=== PATIENT | female | born 2000 | race Two or more races ===

== ENCOUNTER 2025-01-15 10:25 | Inpatient (IN) | payer MEDICAID, SELFPAY ==
[2025-01-15] VITALS (20 sets, daily range): BP systolic 94–118; BP diastolic 50–64; PULSE 65–109; RESP 15–20; TEMP 36.6–36.9; O2SAT 99–100; BMI 27.6
--- NOTE | 2025-01-15 10:44 | XR_ITS ---
Examination: Complete OB ultrasound greater than 14 weeks Date and time of exam: January 15, 2025 1111 hours INDICATIONS: Patient in labor today with no care Findings: Viable intrauterine single fetus with single amniotic sac presentation cephalic spine posterior Cardiac motion 155 BPM Placenta anterior grade 3 Umbilical cord insertion 3 vessel seen seen Amniotic fluid index 7.1 cm Ovaries obscured by bowel gas. Composite estimated gestational age based on BPD, head circumference, abdominal circumference, femur length is 34 weeks 4 days Estimated weight 2444 g. Survey of intracranial anatomy, spinal anatomy, abdominal anatomy, four-chamber heart performed with no abnormalities identified. Impression: Viable intrauterine gestation cephalic presentation.
--- NOTE | 2025-01-15 10:48 | ESHP_ITS ---
Documentation for date of: 01/15/25 OB Labor/Induct. HPI History of Present Illness History of present illness: 24 yo term per patient history presents complaining of contractions and is noted by SASHA Chowdhury to be 5 cm in active labor. She says she had care in [facility] and that there were no problems in the and all labs were normal. Denies hx of HTN or DM. No problems with her prior vaginal deliveries in the past. She does not have any documentation of her care. Meds Home Medications and Allergies Home Medications ?Medication ?Instructions ?Recorded ?Confirmed ?Type vit no.133-ferrous 1 tab PO QDAY 12/11/1802/02 History fumarate 28 mg-folic acid 800 mcg tablet () Allergies Allergy/AdvReac Type Severity Reaction Status Date / Time No Known Allergies Allergy Verified 01/15/25 10:45 OB Exam Physical Exam Vital signs: Pulse BP 96 118/61 01/15/25 10:37 01/15/25 10:37 OB Results Labs 01/15/25 11:05 01/15/25 11:05 Impressions Impression: IUP term by patient history but undocumented care. Active labor Anticipate Informed consent obtained. Patient made aware of the risks complications, alternatives and benefits of OVD and C/S and she agrees. Addendum: US shows EFW consistent with 34w6d. Pt admits to no care . Peds and RT at delivery.
[2025-01-15] MEDS: RINGERS LACTATED 1000 ML 1,000 ML 100 ML IV (11:56)
[2025-01-15] MEDS: Ampicillin Inj 2,000 MG in SODIUM CHLORIDE 0.9% (POP) 100 ML 200 MG IV (11:57)
[2025-01-15 12:25] LABS: Collection Type, Urine Clean Catch
[2025-01-15 12:31] LABS: Basophils # (Auto) 0.0 Thou/mm3 (0.0-0.2); Basophils % (Auto) 0 % (0-2.5); Eosinophils # (Auto) 0.0 Thou/mm3 (0.0-0.5); Eosinophils % (Auto) 0 % (0-10); Hematocrit 27.0 % (36.0-46.0); Immature Granulocytes Auto 0.21 Thou/mm3 (0.00-0.00); Lymphocytes # (Auto) 2.0 Thou/mm3 (1.0-4.8); Lymphocytes % (Auto) 18 % (10-50); Mean Corpuscular HGB Conc 30.0 g/dl (31.0-37.0); Mean Corpuscular Hemoglobin 21.7 pg (25.0-35.0); Mean Corpuscular Volume 72 fL (80-100); Monocytes # (Auto) 0.7 Thou/mm3 (0.0-0.8); Monocytes % (Auto) 7 % (0-12); Neutrophils # (Auto) 8.2 Thou/mm3 (1.8-7.7); Neutrophils % (Auto) 73 % (37-80); Nucleated Red Blood Cell # 0.02 Thou/mm3 (0.00-0.00); Nucleated Red Blood Cell % 0 /100 WBC (0); Platelet Count 191 Thou/mm3 (140-440); RDW Standard Deviation 42.1 fL (36.4-46.3); Red Blood Count 3.74 Miln/mm3 (4.00-5.20); White Blood Count 11.1 Thou/mm3 (3.6-11.0)
[2025-01-15 12:32] LABS: Amphetamine/Metham Scrn,Ur OB Negative (Negative); Benzoylecgonine Screen, Ur OB Negative (Negative); Opiate Screen,Urine OB Negative (Negative); THC Screen,Urine OB Negative (Negative)
[2025-01-15 12:32] LABS: Hemoglobin 8.1 g/dL (12.0-16.0)
[2025-01-15] MEDS: BETAMET ACET/BETAMET NA PH (Celestone) 6 MG/ML VIAL 12 MG IM (12:37)
[2025-01-15 12:51] LABS: Fibrinogen 600 mg/dL (175-375); INR 1.0 (0.9-1.3); Partial Thromboplastin Time 29.3 Seconds (22.0-36.0); Prothrombin Time 10.5 Seconds (9.0-12.2)
[2025-01-15 12:59] LABS: Bacteria,Urine 3+; Bilirubin,Urine Negative (Negative); Blood,Urine Trace (Negative); Clarity,Urine Clear (Clear/Hazy); Color,Urine Lt-Yellow (Lt Yel-Yel); Glucose, Urine Negative (Negative); Ketones,Urine 1+ (Negative); Leukocyte Esterase,Urine Positive (Negative); Nitrite,Urine Negative (Negative); PH,Urine 6.5 (5.0-7.0); Protein,Urine Negative (Neg - Trace); RBC,Urine 4 /hpf (0-3); Specific Gravity,Urine 1.006 (1.001-1.035); Squamous Epithelial Cell,Urine 5 /hpf (0-5); Urobilinogen,Urine Negative mg/dL (0.0-1.0); WBC,Urine 21 /hpf (0-5)
[2025-01-15 13:00] LABS: Alanine Aminotransferase < 7 U/L (10-49); Albumin, Serum 3.8 gm/dL (3.5-5.0); Albumin/Globulin Ratio 1.2 (1.2-2.2); Alkaline Phosphatase 145 U/L (46-116); Anion Gap 14 (7-16); Aspartate Amino Transferase 13 U/L (0-34); BUN/Creatinine Ratio 8 Ratio (12-20); Bilirubin,Total 0.9 mg/dL (0.3-1.2); Blood Urea Nitrogen < 5 mg/dL (9-23); Calcium 8.2 mg/dL (8.3-10.6); Calcium (Corrected) 8.4 mg/dL (8.5-10.1); Carbon Dioxide 19.2 mMol/L (20.0-31.0); Chloride 105 mMol/L (98-107); Creatinine (Component) 0.6 mg/dL (0.6-1.3); Estimated Creatinine Clearance 109.7 mL/min (>60); Globulin 3.2 gm/dL (2.3-3.5); Glucose 78 mg/dL (74-106); LDH (Lactate Dehydrogenase) 166 U/L (120-246); Osmolality,Calculated 271 (275-295); Potassium 3.4 mMol/L (3.4-5.1); Sodium 138 mMol/L (136-145); Total Protein 7.0 gm/dL (5.7-8.2); Uric Acid 6.4 mg/dL (3.1-7.8); eGFR > 60 See Note
[2025-01-15 13:05] LABS: Hepatitis B Surface Antigen Non Reactive (Non React); Rubella, IgG Antibody NonReact(Not Immune)
--- NOTE | 2025-01-15 13:07 | PD.LDDS ---
DS: Providers Provider Date of admission: 01/15/25 11:54 Primary care physician: Physician No Primary/Family Admitting Provider: Ivan Thacker MD Attending Provider on Admission: Ivan Thacker MD Attending Provider on DC: Ivan Thacker MD Discharging Provider: Ivan Thacker MD DS: Diagnosis Problem List Completed Was Problem List Reviewed/Reconciled?: Yes Summary/Hosp Course Brief History: 24 yo term per patient history presents complaining of contractions and is noted by SASHA Chowdhury to be 5 cm in active labor. She says she had care in [facility] and that there were no problems in the and all labs were normal. Denies hx of HTN or DM. No problems with her prior vaginal deliveries in the past. She does not have any documentation of her care. Time Spent with Patient Time attestation: Total time spent providing and/or coordinating discharge services: Exam Vital Signs Temp Pulse Resp BP O2 Del Method 98.4 F 96 17 106/57 L Room Air 01/15/25 10:36 01/15/25 12:59 01/15/25 10:36 01/15/25 12:59 01/15/25 10:36 Discharge Plan Problem List Was Problem List Reviewed/Reconciled?: Yes Plan Patient condition on transfer: Stable Prescriptions/Referrals Prescriptions/Med Rec: New ibuprofen 600 mg tablet 600 mg PO Q6H PRN (Reason: pain) Qty: 30 0RF No Action 28-800 mg-mcg Tablet 1 tab PO QDAY Referrals: No Primary/Family,Physician [Primary Care Provider] - Patient/Caregiver Discharge Instructions Discharge Activity: activity as tolerated Other Discharge Activity Instructions:: Follow up office 6 weeks. Print Language: Thai Stand Alone Forms: Award Info., Patient Portal Info Letter, Work/Release Restrictions Planned Discharge Date 01/17/25
[2025-01-15 13:09] LABS: Syphilis Nonreactive (Nonreactive)
[2025-01-15 13:10] LABS: Creatinine,Random Urine 46 mg/dL (30-125); Protein Total, Random Urine 10 mg/dL (1-14)
[2025-01-15] MEDS: IBUPROFEN TAB 400 MG TABLET 800 MG PO (13:15)
[2025-01-15] MEDS: OXYTOCIN in NS 20 units 20 UNIT/1,000 ML BAG 125 UNIT IV (13:15)
[2025-01-15 14:14] LABS: Glucose Estimated Average 97 mg/dL (80-131); Hemoglobin A1C 5.0 % Hgb (4.8-6.0)
[2025-01-15 14:33] LABS: HIV (1&2) Antibody Rapid Non-Reactive
[2025-01-15 17:34] LABS: Chlamydia trachomatis PCR Negative (Not Detect); Neisseria Gonorrhoeae DNA PCR Negative (Not Detect); Trichomonas Negative (Negative)
[2025-01-15 18:04] LABS: Basophils # (Auto) 0.0 Thou/mm3 (0.0-0.2); Basophils % (Auto) 0 % (0-2.5); Eosinophils # (Auto) 0.0 Thou/mm3 (0.0-0.5); Eosinophils % (Auto) 0 % (0-10); Hematocrit 24.9 % (36.0-46.0); Immature Granulocytes Auto 0.23 Thou/mm3 (0.00-0.00); Lymphocytes # (Auto) 1.3 Thou/mm3 (1.0-4.8); Lymphocytes % (Auto) 8 % (10-50); Mean Corpuscular HGB Conc 30.1 g/dl (31.0-37.0); Mean Corpuscular Hemoglobin 21.6 pg (25.0-35.0); Mean Corpuscular Volume 72 fL (80-100); Monocytes # (Auto) 0.1 Thou/mm3 (0.0-0.8); Monocytes % (Auto) 1 % (0-12); Neutrophils # (Auto) 13.7 Thou/mm3 (1.8-7.7); Neutrophils % (Auto) 89 % (37-80); Nucleated Red Blood Cell # 0.00 Thou/mm3 (0.00-0.00); Nucleated Red Blood Cell % 0 /100 WBC (0); Platelet Count 201 Thou/mm3 (140-440); RDW Standard Deviation 41.7 fL (36.4-46.3); Red Blood Count 3.47 Miln/mm3 (4.00-5.20); White Blood Count 15.3 Thou/mm3 (3.6-11.0)
[2025-01-15 18:25] LABS: Hemoglobin 7.5 g/dL (12.0-16.0)
--- NOTE | 2025-01-15 18:43 | OBDSUM_ITS ---
Data (Kim) Data Hx Section: No : 3 Term: 4 : 1 Livin Abortions: Spontaneous & Theraputic: 0 Delivery Data (Kim) Labor Data Initiation of labor: Spontaneous Induction/Augmentation Agent: None ROM date: 01/15/25 ROM time: 12:55 Amniotic membrane rupture type: Artificial Amniotic fluid description: Clear Delivery Data EDC: 02/22/25 EDC calculated by:: ultrasound Onset of labor date: 01/15/25 Onset of labor time: 06:00 Complete dilation date: 01/15/25 Complete dilation time: 12:52 delivery date: 01/15/25 delivery time: 12:55 Gestational age (weeks): 34 Gestational age (days): 6 Placenta delivery date: 01/15/25 Placenta delivery time: 12:59 Stage 1 total time: Labor - Stage 1 Duration 6 hours and 52 minutes Delivered by: Delivery nurse: Gilma Magana Neworn nurse: Rashmi Patiño Rn Bandage Wrapping Machine Operator at delivery: No Support person(s) at delivery: Suzanna BERGMAN at 1255 Delivery Method Delivery method: Normal Vaginal Delivery Presentation: Vertex position: OA Anesthesia Type Anesthesia Type: None Placenta Placenta delivery description: Spontaneous Cord blood sent to lab: Yes cord blood collection: Cord Blood Type Episiotomy Episiotomy description: None EBL Estimated blood loss (ml): 150 Umbilical Cord cord description: 3 Vessels Complications Complications: None Data (Kim) Data order: 1 [place]'s gender: Female Identification band number: [id number] weight (gms): 5 lb 15.769 oz Weight (pounds): 5 lbs and 15.8 ozs 1 minute: 7 5 minutes: 9
[2025-01-15 19:30] LABS: Basophils # (Auto) 0.0 Thou/mm3 (0.0-0.2); Basophils % (Auto) 0 % (0-2.5); Eosinophils # (Auto) 0.0 Thou/mm3 (0.0-0.5); Eosinophils % (Auto) 0 % (0-10); Hematocrit 25.5 % (36.0-46.0); Immature Granulocytes Auto 0.28 Thou/mm3 (0.00-0.00); Lymphocytes # (Auto) 1.5 Thou/mm3 (1.0-4.8); Lymphocytes % (Auto) 10 % (10-50); Mean Corpuscular HGB Conc 29.4 g/dl (31.0-37.0); Mean Corpuscular Hemoglobin 21.2 pg (25.0-35.0); Mean Corpuscular Volume 72 fL (80-100); Monocytes # (Auto) 0.1 Thou/mm3 (0.0-0.8); Monocytes % (Auto) 1 % (0-12); Neutrophils # (Auto) 13.6 Thou/mm3 (1.8-7.7); Neutrophils % (Auto) 88 % (37-80); Nucleated Red Blood Cell # 0.02 Thou/mm3 (0.00-0.00); Nucleated Red Blood Cell % 0 /100 WBC (0); Platelet Count 200 Thou/mm3 (140-440); RDW Standard Deviation 41.9 fL (36.4-46.3); Red Blood Count 3.54 Miln/mm3 (4.00-5.20); White Blood Count 15.6 Thou/mm3 (3.6-11.0)
[2025-01-15 19:31] LABS: Hemoglobin 7.5 g/dL (12.0-16.0)
[2025-01-16 04:32] VITALS: BP 101/65; PULSE 63; RESP 16; TEMP 36.4; O2SAT 100
[2025-01-16 07:30] VITALS: BP 97/61; PULSE 66; RESP 16; TEMP 36.5; O2SAT 100
--- NOTE | 2025-01-16 07:48 | PD.LDPPPRG ---
Subjective Subjective Interval history: Delivery type: Patient doing well this morning. No acute complaints. Ambulating, tolerating p.o. and voiding without difficulty. HTN/Pre-Eclampsia screen: No chest pain, shortness of breath, headache, visual changes, epigastric or right upper quadrant pain. Breast-feeding, lochia diminishing. Bowel: Flatus+/ BM+ Exam Vital Signs Temp Pulse Resp BP Pulse Ox O2 Del Method 97.5 F 63 16 101/65 100 Room Air 01/16/25 04:32 01/16/25 04:32 01/16/25 04:32 01/16/25 04:32 01/16/25 04:32 01/16/25 04:32 Constitutional Constitutional: no acute distress Routine HEENT Exam Head: Present normocephalic and atraumatic Eye: Present EOMI and PERRL ENT: Present mucous membranes moist Routine Neck Exam Neck: Present supple and trachea midline Routine Respiratory Exam Respiratory: Present chest non-tender, lungs clear, normal breath sounds and no resp distress Routine Cardiovascular Exam Cardiovascular: Present RRR Routine Abdominal Exam Abdominal: Present soft and normoactive bowel sounds Routine Extremities Exam Extremities: Present full ROM Routine Skin Exam Skin: Present intact, dry and warm Routine Neurological Exam Neurological: Present alert, oriented X3 and CN II-XII intact Routine Psychiatric Exam Psychiatric: Present normal affect and normal thought process Objective Labs 01/15/25 19:15 01/15/25 11:05 Labs: Laboratory Results - last 24 hr 01/15/25 01/15/25 01/15/25 10:15 10:44 10:50 WBC RBC Hgb Hct MCV MCH MCHC RDW Std Deviation Plt Count Neut % (Auto) Lymph % (Auto) [place] % (Auto) Eos % (Auto) Baso % (Auto) Neut # (Auto) Lymph # (Auto) [place] # (Auto) Eos # (Auto) Baso # (Auto) Immature Gran # (Auto) Absolute Nucleated RBC Immature Gran % Nucleated RBC % PT INR APTT Fibrinogen Sodium Potassium Chloride Carbon Dioxide Anion Gap BUN Creatinine Estim Creat Clear Calc eGFR BUN/Creatinine Ratio Glucose Estimated Ave Glu mg/dL Hemoglobin A1c Calculated Osmolality Uric Acid Calcium Corrected Calcium Total Bilirubin AST ALT Alkaline Phosphatase Lactate Dehydrogenase Total Protein Albumin Globulin Albumin/Globulin Ratio Ur Collection Type Clean Catch Urine Color Lt-Yellow Urine Clarity Clear Urine pH 6.5 Ur Specific [place] 1.006 Urine Protein Negative Urine Glucose (UA) Negative Urine Ketones 1+ A Urine Blood Trace Urine Nitrite Negative Urine Bilirubin Negative Urine Urobilinogen (Auto) Negative Ur Leukocyte Esterase Positive Urine RBC 4 H Urine WBC 21 H Ur Squamous Epith Cells 5 Urine Bacteria 3+ A Ur Random Creatinine 46 Cancelled U Random Total Protein 10 Cancelled Urine Opiates Screen Negative U Amphetamin/Meth Scrn Negative U Cocaine Metab Screen Negative U Marijuana (THC) Screen Negative Syphilis Serology Chlam trachomat DNA PCR Negative Hep Bs Antigen HIV 1&2 Antibody Rapid N.gonorrhoeae DNA (PCR) Negative Rubella IgG Antibody Trichomonas DNA Probe Negative Blood Type A Positive Antibody Screen NEGATIVE Crossmatch See Detail Blood Bank Wristband ID Yes 01/15/25 01/15/25 01/15/25 11:05 17:43 19:15 WBC 11.1 H 15.3 H 15.6 H RBC 3.74 L 3.47 L 3.54 L Hgb 8.1 L 7.5 L 7.5 L Hct 27.0 L 24.9 L 25.5 L MCV 72 L 72 L 72 L MCH 21.7 L 21.6 L 21.2 L MCHC 30.0 L 30.1 L 29.4 L RDW Std Deviation 42.1 41.7 41.9 Plt Count 191 201 200 Neut % (Auto) 73 89 H 88 H Lymph % (Auto) 18 8 L 10 [place] % (Auto) 7 1 1 Eos % (Auto) 0 0 0 Baso % (Auto) 0 0 0 Neut # (Auto) 8.2 H 13.7 H 13.6 H Lymph # (Auto) 2.0 1.3 1.5 [place] # (Auto) 0.7 0.1 0.1 Eos # (Auto) 0.0 0.0 0.0 Baso # (Auto) 0.0 0.0 0.0 Immature Gran # (Auto) 0.21 H 0.23 H 0.28 H Absolute Nucleated RBC 0.02 H 0.00 0.02 H Immature Gran % 2 H 2 H 2 H Nucleated RBC % 0 0 0 PT 10.5 INR 1.0 APTT 29.3 Fibrinogen 600 H Sodium 138 Potassium 3.4 Chloride 105 Carbon Dioxide 19.2 L Anion Gap 14 BUN < 5 L Creatinine 0.6 Estim Creat Clear Calc 109.7 eGFR > 60 BUN/Creatinine Ratio 8 L Glucose [address] Glu mg/dL 97 Hemoglobin A1c 5.0 Calculated Osmolality 271 L Uric Acid 6.4 Calcium 8.2 L Corrected Calcium 8.4 L Total Bilirubin 0.9 AST 13 ALT < 7 L Alkaline Phosphatase 145 H Lactate Dehydrogenase 166 Total Protein 7.0 Albumin 3.8 Globulin 3.2 Albumin/Globulin Ratio 1.2 Ur Collection Type Urine Color Urine Clarity Urine pH Ur Specific [place] Urine Protein Urine Glucose (UA) Urine Ketones Urine Blood Urine Nitrite Urine Bilirubin Urine Urobilinogen (Auto) Ur Leukocyte Esterase Urine RBC Urine WBC Ur Squamous Epith Cells Urine Bacteria Ur Random Creatinine U Random Total Protein Urine Opiates Screen U Amphetamin/Meth Scrn U Cocaine Metab Screen U Marijuana (THC) Screen Syphilis Serology Nonreactive Chlam trachomat DNA PCR Hep Bs Antigen Non Reactive HIV 1&2 Antibody Rapid Non-Reactive N.gonorrhoeae DNA (PCR) Rubella IgG Antibody NonReact(Not Immune) L Trichomonas DNA Probe Blood Type Antibody Screen Crossmatch Blood Bank Wristband ID Assessment & Plan Problem List (1) Vaginal delivery: Status: Acute Assessment and plan: 1. Continue routine /post-op care 2. Labs reviewed, cbc appropriate 3. Remove dressing/Bernal 4. Encourage to ambulate, shower 5. Encourage PO intake, breast feeding (2) No care received because patient was unaware of : Status: Acute Time Spent With Patient Time: Total time spent is greater than 50% in coordination of care (as documented) at patient's floor/unit and/or counseling patient:
--- NOTE | 2025-01-16 07:49 | ESDS_ITS ---
DS: Providers Provider Date of admission: 01/15/25 11:54 Primary care physician: Physician No Primary/Family Admitting Provider: Ivan Thacker MD Attending Provider on Admission: Vin Spencer MD Consults: 01/15/25 14:37 Referral Routine Comment: 01/15/25 15:57 Referral Routine Comment: Attending Provider on DC: Vin Spencer MD Discharging Provider: Vin Spencer MD DS: Diagnosis Discharge Diagnosis (1) No care received because patient was unaware of : Status: Acute (2) Vaginal delivery: Status: Acute Problem List Completed Was Problem List Reviewed/Reconciled?: Yes Summary/Hosp Course Brief History: 24 yo term per patient history presents complaining of contractions and is noted by SASHA Chowdhury to be 5 cm in active labor. She says she had care in [facility] and that there were no problems in the and all labs were normal. Denies hx of HTN or DM. No problems with her prior vaginal deliveries in the past. She does not have any documentation of her care. Peripartum Data Delivery Method: Normal Vaginal Delivery Episiotomy Description: None Time Spent with Patient Time attestation: Total time spent providing and/or coordinating discharge services: Exam Vital Signs Temp Pulse Resp BP Pulse Ox O2 Del Method 97.5 F 63 16 101/65 100 Room Air 01/16/25 04:32 01/16/25 04:32 01/16/25 04:32 01/16/25 04:32 01/16/25 04:32 01/16/25 04:32 Discharge Plan Plan Patient Disposition: HOME (Self Care) Patient condition on transfer: Stable Prescriptions/Referrals Prescriptions/Med Rec: New ibuprofen 600 mg tablet 600 mg PO Q6H PRN (Reason: pain) Qty: 30 0RF No Action 28-800 mg-mcg Tablet 1 tab PO QDAY Referrals: Vin Spencer MD [Physician] - No Primary/Family,Physician [Primary Care Provider] - Patient/Caregiver Discharge Instructions Meds to Beds: Yes Discharge Activity: activity as tolerated Other Discharge Activity Instructions:: Follow up office 6 weeks. Education Materials: After a Vaginal , After Delivery [place] Concerns, Breast Care After , Feel Healthy After Print Language: Tajik Stand Alone Forms: Award Info., Patient Portal Info Letter, Work/Release Restrictions Discharge Order Discharge Orders: Discharge (Routine); Ordered 01/16/25 Ordered By: Vin Spencer Planned Discharge Date 01/16/25
[2025-01-16 11:20] VITALS: BP 97/62; PULSE 70; RESP 16; TEMP 36.6; O2SAT 99
--- NOTE | 2025-01-16 13:04 | PC.SS ---
ATMOSPHERIC DRIER TENDER conducted bedside contact with the patient to address nursing referral indicating patient possessed no history of care.? ATMOSPHERIC DRIER TENDER introduced self and role.? At bedside with patient was Gee BERGMAN.? Patient gave permission for FOB to be present during discussion.? Patient confirmed not accessing OB services during duration of .? Patient reports insurance not a barrier with accessing OB services.? Patient informed ATMOSPHERIC DRIER TENDER that she was not possessing any health concerns.? Discussed that OB services assist with monitoring health of infants and their mothers.? Patient acknowledged benefits of care.? Patient stated awareness of obtaining OB services if need had arisen.? In addition patient reported being out of state for approximately 1 month while .? Infant, Sergio; is the patient?s 6th child.? Other children are ages 6, 5, 3, 2, and 1 years old.? Infant delivered naturally.? Patient plans on breast feeding the .? Patient is receiving both SNAP and TANF.? Patient is not receiving WIC.? ATMOSPHERIC DRIER TENDER provided patient with information to apply for WIC.? Patient denies possessing a history of mental health.? Patient denies history of CWS intervention.? Patient denies history of alcohol/drug use.? Patient denies episodes of domestic violence.? Patient has access to appropriate supplies and equipment.? FOB will provide transportation upon discharge.? Patient describes possessing support system consisting of FOB and extended family.? ATMOSPHERIC DRIER TENDER observed patient to in engage in appropriate interaction with the .? ATMOSPHERIC DRIER TENDER provided community resources to include [employer] and [employer].? No further intervention required at this time, social science instructor will be available to address any further concerns.? ATMOSPHERIC DRIER TENDER updated bedside nurse.?
--- NOTE | 2025-01-17 07:44 | PD.ADDHP ---
Addendum History & Physical Addendum Date of report being addended: 01/17/25 Narrative: Physical Exam: HEENT : oropharynx and sclera clear Lungs : CTA B/L Heart: RRR Abdomen: Gravid. Consistent with 36 weeks Pelvic: see RN notes Ext: Nontender Skin: No gross rashes or lesions Neuro: No focal deficit Psych: Alert and oriented
== END 2025-01-16 15:25 | disposition home or self-care (01) | DRG 560 ==
LOC: S4SX 13:51 → S4NX 15:07
PROVIDERS: Admitting Provider Specialist; Visit Provider Obstetrics & Gynecology
DX: O80 Encounter for full-term uncomplicated delivery (principal); Z3A.34 34 weeks gestation of pregnancy; Z37.0 Single live birth
CPT/HCPCS: 36415; 59025; 76805; 80053; 80307; 81001; 82570; 83036; 83615; 84156; 84550; 85025; 85384; 85610; 85730; 86703; 86762; 86780; 86850; 86900; 86901; 86923; 87077; 87081; 87086; 87186; 87340; 87491; 87591; 87661; 90707; J0290; J0702; J2590; J7120; A9270